=== PATIENT | male | born 1980 | race African-American/Black ===

== ENCOUNTER 2019-11-07 19:40 | Emergency (ER) | payer MEDICAID ==
[~2019-11-07] VITALS: Ht 185.4 cm; Wt 96.3 kg
[2019-11-08 00:50] LABS: BASOPHILS % (AUTO) 0.5 % (0.0-2.0); EOSINOPHILS % (AUTO) 1.7 % (1.0-6.0); HEMATOCRIT 44.6 % (41-53); HEMOGLOBIN 15.5 g/dL (13.5-17.5); LYMPHOCYTES # (AUTO) 2.1 K/uL (1.0-4.8); LYMPHOCYTES % (AUTO) 23.7 % (22.0-44.0); MEAN CORPUSCULAR HEMOGLOBIN 32.4 pg (26.0-34.0); MEAN CORPUSCULAR HGB CONC 34.7 G/dL (31.0-37.0); MEAN CORPUSCULAR VOLUME 93 fL (80-100); MONOCYTES # (AUTO) 0.9 K/uL (0.1-1.0); MONOCYTES % (AUTO) 9.9 % (2.0-9.0); NEUTROPHILS # (AUTO) 5.7 K/uL (1.8-7.7); NEUTROPHILS % (AUTO) 64.2 % (40.0-70.0); PLATELET COUNT (AUTO) 162 K/uL (150-450); RED BLOOD CELL COUNT(AUTO) 4.78 MIL/uL (4.50-5.90); RED CELL DISTRIBUTION WIDTH 12.9 % (11.5-14.5)
[2019-11-08 01:03] LABS: ANION GAP 10 mmol/L (8-16); CALCIUM, TOTAL 9.5 mg/dL (8.8-10.5); CARBON DIOXIDE 27 mmol/L (22-29); CHLORIDE 103 mmol/L (98-107); CREATININE 1.05 mg/dL (0.60-1.30); GLOMERULAR FILTR. RATE CALC > 60 mL/min (>60); GLUCOSE,RANDOM 77 mg/dL (70-110); POTASSIUM 3.3 mmol/L (3.5-5.1); SODIUM SERUM 140 mmol/L (136-145); UREA NITROGEN, BLOOD 8 mg/dL (7-18)
[2019-11-08 01:15] LABS: ALANINE AMINOTRANSFERASE 43 U/L (12-78); ALBUMIN 4.1 g/dL (3.4-5.0); ALKALINE PHOSPHATASE 85 U/L (46-116); ASPARTATE AMINOTRANSFERASE 68 U/L (15-37); BILIRUBIN,TOTAL 1.6 mg/dL (0.1-1.0); TOTAL PROTEIN, SERUM 7.4 g/dL (6.4-8.2)
[2019-11-08] MEDS ORDERED: DiphenhydrAMINE HCL 50 MG/ML VIAL IM ONE (01:15)
[2019-11-08] MEDS ORDERED: LORazepam 2 MG/ML VIAL IM ONE (01:15)
[2019-11-08] MEDS ORDERED: HALOPERIDOL LACTATE 5 MG/ML VIAL IM ONE (01:15)
[2019-11-08 10:02] VITALS: BP 126/79
== END 2019-11-08 10:15 | disposition home or self-care (01) ==
LOC: EMS 19:41
DX: F29 Unspecified psychosis not due to a substance or known physiological condition (principal)
CPT/HCPCS: 36415; 80053; 85025; 96372; 99285; G0480; J1200; J1630; J2060

== ENCOUNTER → 2024-12-29 | Emergency (ER) | payer MEDICAID, OTHER ==
[~2024-12-29] MED LIST: RISP-31 PO
== END | disposition left against medical advice (07) ==
LOC: EMS 05:10
DX: R53.1 Weakness (principal); Z53.21 Procedure and treatment not carried out due to patient leaving prior to being seen by health care provider

== ENCOUNTER 2025-01-20 14:09 | Emergency (ER) | payer OTHER ==
[~2025-01-20] VITALS: Ht 185.4 cm; Wt 102.3 kg
[2025-01-20 14:13] VITALS: TEMP 98.6
[2025-01-20] MEDS: IBUPROFEN 400 MG TABLET PO ONE (15:01)
[2025-01-20] MEDS: ACETAMINOPHEN 500 MG TABLET PO ONE (15:01)
[2025-01-20] MEDS ORDERED: CEFU250T87 PO (16:28)
[2025-01-20] MEDS: cefuroxime axetiL 250 MG TABLET PO ONE (16:40)
[2025-01-20 16:42] VITALS: BP 115/69; PULSE 89; RESP 18; O2SAT 97
== END 2025-01-20 16:44 | disposition home or self-care (01) ==
LOC: EMS 14:13
DX: L03.115 Cellulitis of right lower limb (principal)
CPT/HCPCS: 93971; 99284; Z7502; Z7610